=== PATIENT | female | born 1970 | race Caucasian/White ===

== ENCOUNTER 2019-10-17 08:32 | Outpatient (CLI) | payer OTHER, SELFPAY ==
--- NOTE | 2019-10-18 21:12 | SLEEP_ITS ---
Home sleep test. DATE OF STUDY: 10/17/2019 ORDERING PROVIDER: YOAN Cooper. REASON FOR THE STUDY: Insomnia. HISTORY: The patient is a 49-year-old female, 5 feet 2 inches tall, weighing 200 pounds with a body mass index of 36.5. She has complaints of very loud snoring. There is a family history, her father has sleep apnea. She constantly snores loud enough that others complain about it. She frequently awakens from sleep feeling short of breath and with heartburn and belching. She occasionally has trouble sleeping with a cold. She rarely wakes up gasping for breath at night. She rarely has breathing problems witnessed by others. She frequently sweats excessively at night. She occasionally notices her heart pounding or beating irregularly at night. She rarely falls asleep during the day. She does not fall asleep involuntarily or while driving. She does not have loss of muscle tone with strong emotion. She does not have daytime difficulties due to excessive sleepiness. She does not feel paralyzed on waking or falling asleep. She does not have vivid dreamlike scenes upon awakening or falling asleep. She is never afraid to go to sleep and does not have nightmares. She occasionally remembers her dreams and occasionally has racing thoughts. She does not have feelings of sadness or depression. She rarely feels anxious. She occasionally has muscular tension. She frequently notices parts of her body jerking, rarely kicks at night and occasionally has crawly, achy feelings in her legs. She frequently has leg pain at night. She rarely has morning jaw pain. She occasionally grinds her teeth. She frequently is bothered by pain during the day as well as at night and feels stiff in the morning with sore achy muscles and neck and spine pain. Normal bedtime is 10 p.m., falling asleep within 2-3 minutes, waking 2-3 times at night, sometimes for hours. When she awakens at night, she will go to the bathroom, drink water, reposition herself and try to relax. She wakes up in the morning at 6:30 a.m. Weekend schedule is about the same, maybe going to bed an hour later. MEDICAL COMORBIDITIES: Arthritis, seasonal allergies. MEDICATIONS: No regular medications. HABITS: Never smoked tobacco. Caffeine, drinks tea at lunch. No alcohol. DESCRIPTION OF THE STUDY: On the [place] Sleepiness Scale, her score is 11, elevated. This was conducted as an unattended type 3 portable home sleep test with 4 channel monitoring including respiratory effort channel, heart rate channel, oxygen saturation channel, and snoring channel. This was scored using [facility] guidelines. Duration was 6 hours 56 minutes. The apnea-hypopnea index is 12.1. Oxygen desaturation index is 13.4. Lowest saturation 77%. There were 22 apneas. Of the apneas, 64% or 14 were obstructive, 36% or 8 were central. She had 62 hypopneas and 492 snoring events with 104 desaturations spending 7 minutes or 2% of the study below 88% saturation. Heart rate was 62 to 106. IMPRESSION: This study shows evidence of at least mild obstructive sleep apnea syndrome G47.33 with an AHI of 12.1, desaturation to 77%. 7 minutes spent below 88% and primarily obstructive events. The patient would benefit by an APAP with setting 5-15, appropriate interface and heated humidifier. She should not drive until daytime sleepiness has resolved. Close clinical followup is recommended. PRATEEK CROSS M.D. FRONT OFFICE DEVELOPER FRONT OFFICE DEVELOPER D I MT: Thelma RYDER
== END 2019-10-17 08:33 | disposition home or self-care (01) ==
LOC: ANHCSM 08:33
PROVIDERS: PCP Family Medicine; Visit Provider Physician Assistant Medical
DX: G47.33 Obstructive sleep apnea (adult) (pediatric) (principal)
CPT/HCPCS: 95806

== ENCOUNTER 2019-10-22 07:35 | Outpatient (CLI) | payer OTHER, SELFPAY ==
--- NOTE | ~2019-10-22 | MM_ITS ---
EXAMINATION: MM screening [facility] BI w conrad HISTORY: Screening mammogram TECHNIQUE: Craniocaudal and mediolateral oblique 3-D tomosynthesis images were obtained and synthetic 2-D images were generated. CAD analysis was submitted and interpreted. COMPARISON: Comparison to multiple prior studies sequentially, with oldest reviewed study dated 12/20. BREAST PARENCHYMAL COMPOSITION: There are scattered areas of fibroglandular density. FINDINGS: There is no evidence of suspicious mass, calcification, or architectural distortion to sugg est malignancy in either breast. There has been no suspicious interval change. IMPRESSION: 1. No mammographic evidence of malignancy. 2. Recommend routine screening mammography in one year. BI-RADS Category 1: Negative Reviewed, dictated and finalized at location A.
== END 2019-10-22 07:36 | disposition home or self-care (01) ==
PROVIDERS: PCP Family Medicine; Visit Provider Obstetrics & Gynecology
DX: Z12.31 Encounter for screening mammogram for malignant neoplasm of breast (principal)
CPT/HCPCS: 77063; 77067

== ENCOUNTER 2020-01-09 15:44 | Outpatient (CLI) | payer OTHER, SELFPAY ==
[2020-01-09 16:28] LABS: Hemoglobin 12.6 g/dL (12.0-15.0)
== END 2020-01-09 15:45 | disposition home or self-care (01) ==
LOC: ANHLAB 15:46
PROVIDERS: PCP Family Medicine; Visit Provider Obstetrics & Gynecology
DX: N95.0 Postmenopausal bleeding (principal)
CPT/HCPCS: 36415; 85014; 85018; 86850; 86900; 86901

== ENCOUNTER 2020-01-10 08:21 | Day surgery (SDC) | payer OTHER, SELFPAY ==
[2020-01-10] VITALS (21 sets, daily range): BP systolic 130–175; BP diastolic 67–93; PULSE 65–91; RESP 11–18; TEMP 36.2–36.6; O2SAT 97–100
--- NOTE | 2020-01-10 06:53 | HP_ITS ---
This report was moved to the correct visit, [id number] on 01/15/2020. Original report was signed by Juan Luis Charles MD on 01/10/20652. History and Physical Update Update Date/Time: 01/10/20 06:53 History and Physical has been reviewed, including an updated exam of the patient. There are NO changes in the patient's condition. Risks, benefits, and alternatives have been discussed and questions answered. Patient agrees to proceed with procedure. Report Initialized date/time: Juan Luis Charles MD 01/10/20652 Electronically signed by: Juan Luis Charles MD 01/10/20652 [facility]
--- NOTE | 2020-01-10 06:54 | HP_ITS ---
This report was moved to the correct visit, [id number] on 01/15/2020. Original report was signed by Juan Luis Charles MD on 01/10/20 0657. H&P: HPI History of Present Illness Date/Time: 01/10/20 06:54 Chief complaint: Postmenopausal Bleeding Narrative: Rea Oglesby is a 49 year old female Admitted with heavy bleeding. She began bleeding yesterday after 2 years of no bleeding. She has been going through a pad an hour. She will undergo a hysteroscopy dilatation curettage and ablation. Risks and benefits have been reviewed in full detail Review of Systems Review of Systems: All systems reviewed & are unremarkable except as noted in HPI and below PMFSH Family History Family History Father Hypertension Mother Hypertension Grandparent Cerebrovascular accident Family history of malignant neoplasm of bone Family history of coronary artery disease Diabetes mellitus Social History Social History Smoking status: Never smoker Second hand tobacco smoke exposure: No Alcohol intake: unknown Substance use: never Living arrangements: with family Spiritual care concerns: No Meds Home Medications and Allergies Home Medications Medication Instructions Recorded Confirmed Type [id number]-[id number] 1 tablet PO DAILY 01/09/20 01/09/20 History [Adult Multi plus [place]-3] vitamin E 30 unit PO DAILY 01/09/20 01/09/20 History hydrocodone-acetaminophen 1 tablet PO Q6H PRN #20 tablet 01/10/20 Rx Allergies Allergy/AdvReac Type Severity Reaction Status Date / Time Penicillins Allergy Unknown Unknown Verified 01/09/20 16:38 1.PCN 2. ARITHRYMICIN Allergy Unknown Unknown Uncoded 01/09/20 16:38 ERYTHROMYCIN (Generic Allergy Y Uncoded 01/09/20 16:38 Allergy) MACROLIDES Allergy Unknown Uncoded 01/09/20 16:38 Exam Const: General: no acute distress Eyes: General: appearance normal, both eyes and all related structures Neck: Neck: supple and no JVD Thyroid: thyroid normal Resp: Effort & Inspection: normal respiratory effort Auscultation: clear to auscultation bilaterally Cardio: Rate: regular rate Rhythm: regular rhythm GI: Inspection: non-distended GI Palp: Yes Soft to palpation, No Tenderness to palpation present (GI) and No Guarding due to palpation present (GI) Auscultation: normal bowel sounds : General: Yes bladder normal to inspection External Female Exam: normal external appearance Speculum Exam - Vagina: normal appearance of the vagina Speculum Exam - Cervix: normal appearance of the cervix Bimanual exam- vagina & uterus: enlarged OB/external & speculum: vaginal bleeding Skin: General skin exam: no rashes or lesions noted Extrem: General: normal to inspection and no edema Psych: Mental Status: mental status grossly normal Affect: normal affect Assessment and Plan Additional Plan impression: Heavy bleeding in a patient who was previously amenorrheic Plan: Hysteroscopy, dilatation and curettage [place] ablation Report Initialized date/time: Juan Luis Charles MD 01/10/20656 Electronically signed by: Juan Luis Charles MD 01/10/20656 [facility]
--- NOTE | 2020-01-10 08:43 | ECG_ITS ---
Measurements Intervals Bo[place] D Arc Rate: 71 P: 53 NV: 142 QRS: -7 QRSD: 78 T: 45 QT: 404 QTc: 440 Interpretive Statements SINUS RHYTHM BASELINE ARTIFACT- I, II, III, AVR, AVL, AVF, V1, V4-V6 NORMAL ECG Electronically Signed On 01-10-2020 9:13:16 CDT by Carlos Bassett D.O.
[2020-01-10 09:03] LABS: Basophils Percent Auto 0.5 % (0.2-1.2); Eosinophils Absolute Auto 0.2 K/mm3 (0-0.3); Hematocrit 40.3 % (37.0-47.0); Hemoglobin 13.4 g/dL (12.0-15.0); Immature Granulocyte Absolute 0.02 K/mm3 (0.00-0.031); Immature Granulocyte Percent A 0.3 % (0-0.5); Lymphocytes Absolute Auto 1.25 K/mm3 (0.9-3.2); Lymphocytes Percent Auto 21.9 % (18.3-44.2); Mean Corpuscular HGB Conc 33.3 g/dl (32-36); Mean Corpuscular Hemoglobin 28.7 pg (26-34); Mean Corpuscular Volume 86.3 fl (80-100); Mean Platelet Volume 9.5 fl (7.4-10.4); Monocytes Absolute Auto 0.3 K/mm3 (0.1-0.6); Monocytes Percent Auto 5.8 % (2.6-8.5); Neutrophils Absolute Auto 3.9 K/mm3 (1.3-6.7); Neutrophils Percent Auto 68.5 % (45.5-73.1); Platelet Count Result 240 k/mm3 (150-375); Red Blood Count 4.67 M/mm3 (4.2-5.4); Red Cell Distribution Width 12.4 % (11.5-14.5); White Blood Count 5.7 K/mm3 (4.5-10.0)
--- NOTE | 2020-01-10 09:15 | ED.FEMALEGU ---
HPI - Female Genitourinary General Chief complaint: Vaginal Bleeding Stated complaint: vaginal bleeding Time Seen by Provider: 01/10/20 08:30 Source: patient Mode of arrival: ambulatory Limitations: no limitations History of Present Illness HPI Narrative: This patient is a 49 year old female who presents for evaluation of vaginal bleeding. Patient states she developed heavy vaginal bleeding 3 days ago. She states her bleeding was heavy with clots. She states prior to this episode she has not had a menstrual cycle in 2 years. She initially was having to change her pad once every hour. She was evaluated by her rock cutter yesterday . She states he started her on progesterone yesterday and she states her bleeding has lessened. She also reports he scheduled her for a D and C this morning. She was sent to ER because her insurance would not preauthorize the procedure. Related Data Home Medications Medication Instructions Recorded Confirmed medroxyprogesterone 10 mg PO DAILY 01/10/20 01/10/20 Allergies Allergy/AdvReac Type Severity Reaction Status Date / Time Penicillins Allergy Unknown Unknown Verified 01/10/20 11:01 ERYTHROMYCIN (Generic Allergy Y Uncoded 01/10/20 11:01 Allergy) MACROLIDES Allergy Unknown Uncoded 01/10/20 11:01 Review of Systems Review of Systems: All systems reviewed & are unremarkable except as noted in HPI and below Constitutional: Constitutional: Denies chills Cardiovascular: Cardiovascular: Denies chest pain Respiratory: Respiratory: Denies cough and Reports dyspnea Gastrointestinal: Gastrointestinal: Denies abdominal pain, Denies diarrhea, Denies nausea and Denies vomiting Genitourinary: Genitourinary: Reports abnormal vaginal bleeding [facility] Past Medical History Medical History (Updated 01/10/20 @ 18:36 by Silvia Drew MD) Hypertension Obesity AMADOR on CPAP Surgical History Surgical History (Updated 01/10/20 @ 10:34 by Juan Luis Crowder MD) History of cholecystectomy Hx of breast reduction, elective Family History Family History Father Hypertension Mother Hypertension Grandparent Cerebrovascular accident Family history of malignant neoplasm of bone Family history of coronary artery disease Diabetes mellitus Social History Social History Smoking status: Never smoker Second hand tobacco smoke exposure: No Alcohol intake: unknown Substance use: never Spiritual care concerns: No Exam Const: General: no acute distress and alert Orientation/consciousness: patient oriented x3 HENMT: Head: atraumatic Face and sinus: face symmetric Mouth: Yes Normal oral and palatal mucosa present, Yes lip normal and Yes oropharynx normal Eyes: EOM: EOMs intact bilaterally Chest: Chest palpation & inspection: normal inspection of the chest Resp: Effort & Inspection: normal respiratory effort and no retractions Auscultation: clear to auscultation bilaterally Cardio: Rate: regular rate Rhythm: regular rhythm Heart sounds: no murmurs : Speculum Exam - Cervix: Cervical os closed Other: mucus in cervix with streak of blood Psych: Mental Status: mental status grossly normal Affect: normal affect Course Course Emergency Course: PAtient presented with 3 days of vaginal bleeding. Her bleeding improved after she was placed on progesterone yesterday. She has not active bleeding today in ER. She was sent through ER to get D and C with ablation with Dr. Millicent Wetzel Consultations Date: 01/10/20 Time: 10:00 Vital Signs Vital signs: Vital Signs Temperature 97.1 F L 01/10/20 08:27 Pulse Rate 83 01/10/20 08:27 Respiratory Rate 16 01/10/20 08:27 Blood Pressure 148/89 H 01/10/20 08:27 Pulse Oximetry 100 01/10/20 08:27 Temperature 97.8 F 01/10/20 10:55 Pulse Rate 65 01/10/20 12:30 Respiratory Rate 16 01/10/20 12:30
--- NOTE | 2020-01-10 10:33 | WPDANESEPPF ---
Anes - Initial Pre Proc Eval Procedure: Operation Date: 01/10/20 10:30 Proposed Procedures p Hysteroscopy, Dilation And Curettage Marina Endometrial Ablation - Juan Luis Somers MD Date/Time: 01/10/20 10:33 Surgeon: Juan Luis Somers MD Pre Op Diagnosis: vaginal bleeding Patient Data Age: 49 Gender: F Height: 5 ft 2 in Weight: 97.5 kg Last Vital Signs Temp 36.2 C L 01/10/20 08:27 Pulse 79 01/10/20 10:01 Resp 15 01/10/20 10:01 BP 135/75 01/10/20 10:01 Pulse Ox 100 01/10/20 10:01 Allergies Allergy/AdvReac Type Severity Reaction Status Date / Time Penicillins Allergy Unknown Unknown Verified 01/10/20 08:22 1.PCN 2. ARITHRYMICIN Allergy Unknown Unknown Uncoded 01/09/20 16:38 ERYTHROMYCIN (Generic Allergy Y Uncoded 01/09/20 16:38 Allergy) MACROLIDES Allergy Unknown Uncoded 01/09/20 16:38 Home Medications Medication Instructions Recorded Confirmed Type medroxyprogesterone mg 01/10/20 History Laboratory Tests 01/10/20 08:58 WBC 5.7 K/mm3 K/mm3 (4.5-10.0) RBC 4.67 M/mm3 M/mm3 (4.2-5.4) Hgb 13.4 g/dL g/dL (12.0-15.0) Hct 40.3 % % (37.0-47.0) MCV 86.3 fl fl (80-100) MCH 28.7 pg pg (26-34) MCHC 33.3 g/dl g/dl (32-36) RDW 12.4 % % (11.5-14.5) Plt Count 240 k/mm3 k/mm3 (150-375) MPV 9.5 fl fl (7.4-10.4) Immature Gran % (Auto) 0.3 % % (0-0.5) Neut % (Auto) 68.5 % % (45.5-73.1) Lymph % (Auto) 21.9 % % (18.3-44.2) [place] % (Auto) 5.8 % % (2.6-8.5) Eos % (Auto) 3.0 % % (0-4.4) Baso % (Auto) 0.5 % % (0.2-1.2) Lymph # (Auto) 1.25 K/mm3 K/mm3 (0.9-3.2) [place] # (Auto) 0.3 K/mm3 K/mm3 (0.1-0.6) Eos # (Auto) 0.2 K/mm3 K/mm3 (0-0.3) Baso # (Auto) 0.0 K/mm3 K/mm3 (0.0-0.1) Abs Immat Gran (auto) 0.02 K/mm3 K/mm3 (0.00-0.031) Absolute Neuts (auto) 3.9 K/mm3 K/mm3 (1.3-6.7) Absolute Nucleated RBC 0.0 K/mm3 K/mm3 (0.0-0.012) Nucleated RBC % 0.0 % % (0.0-0.2) Patient hx anesthesia problems: none Family hx anesthesia problems: none [facility] Past Medical History Medical History (Updated 01/10/20 @ 10:34 by Juan Luis Crowder MD) Hypertension Obesity AMADOR on CPAP Surgical History Surgical History (Updated 01/10/20 @ 10:34 by Juan Luis Crowder MD) History of cholecystectomy Hx of breast reduction, elective Family History Family History Father Hypertension Mother Hypertension Grandparent Cerebrovascular accident Family history of malignant neoplasm of bone Family history of coronary artery disease Diabetes mellitus Social History Social History Smoking status: Never smoker Second hand tobacco smoke exposure: No Alcohol intake: unknown Substance use: never Spiritual care concerns: No Anes - Eval Final PreProcedure Day of Procedure 01/10/20 10:33 Patient weight: obese Heart: regular rate and rhythm Lungs: clear to auscultation Airway: Mallampati scale class 1 Neurological: alert and oriented Last oral intake: >/= 8 hours ASA classification: III Emergent: no Anesthetic plan: proceed Anesthesia type and monitoring: general GIVS and standard monitoring Informed Consent: The patient's anesthetic plan and its attendant risks and benefits were discussed with the patient/family/POA. Questions were solicited and answers provided to the satisfaction of the patient/family/POA.
[2020-01-10] MEDS: LACTATED RINGERS 1,000 ML 30 ML IV CONT (10:50)
--- NOTE | 2020-01-10 11:32 | PM.PROC ---
Procedure Note - Detailed Date of procedure: 01/10/20 Pre-op diagnosis: vaginal bleeding Surgeon: Juan Luis Somers MD Postop diagnosis: Vaginal bleeding Procedure: Hysteroscopy/dilatation curettage / Min nerva ablation Anesthesia: IV sedation and local EBL: 5Cc Findings: Clots and thickened endometrium Complications: None Description of procedure: Patient was prepped draped in the normal sterile fashion placed in dorsal lithotomy position. Under excellent IV sedation weighted speculum placed in the posterior fornix of vagina. Anterior lip of the cervix was grasped with a single-tooth tenaculum. 2.5cc of 1% xylocaine anesthesia placed at 2, 4, 8, 10:00 a.m. of the cervix. The uterus sounded to 8cm. Serial dilatation with fragmented dilators performed followed by passage of a 5mm visualizing hysteroscope. Normal saline was used as visualizing medium. Clots and irregular tissue was seen but no evidence of definitive abnormality. The uterus was then scraped over the entire 360? until a good grating sound was heard. The min nerve instrument was placed in the uterus and burned for 120seconds round. The instruments removed. The patient was awakened. All sponge, needle, instrument counts were correct. There were no immediate complications
== END 2020-01-10 12:40 | disposition home or self-care (01) ==
LOC: ANHED 10:01 → ANHSURGERY 10:14
PROVIDERS: Emergency Provider General Practice; PCP Family Medicine; Visit Provider Obstetrics & Gynecology
PROC: 0U5B8ZZ Destruction of Endometrium, Via Natural or Artificial Opening Endoscopic (ICD-10-PCS; CPT 58563; principal; 2020-01-10 10:30)
DX: N93.8 Other specified abnormal uterine and vaginal bleeding (principal); I10 Essential (primary) hypertension; G47.33 Obstructive sleep apnea (adult) (pediatric); E66.9 Obesity, unspecified; Z68.36 Body mass index [BMI] 36.0-36.9, adult
CPT/HCPCS: 58563; 36415; 85025; 88305; 93005; 99285; J2250; J2405; J2704; J3010; J7030; J7120

== ENCOUNTER 2020-10-23 07:17 | Outpatient (CLI) | payer OTHER, SELFPAY ==
--- NOTE | ~2020-10-23 | MM_ITS ---
EXAMINATION: MM screening [facility] BI w conrad HISTORY: Screening TECHNIQUE: Craniocaudal and mediolateral oblique 3-D tomosynthesis images were obtained and synthetic 2-D images were generated. CAD analysis was submitted and interpreted. COMPARISON: Comparison to multiple prior studies sequentially, with oldest reviewed study dated 04/18. BREAST PARENCHYMAL COMPOSITION: There are scattered areas of fibroglandular density. FINDINGS: There is no evidence of suspicious mass, calcification, or architectural distortion to sugg est malignancy in either breast. There has been no suspicious interval change. IMPRESSION: 1. No mammographic evidence of malignancy. 2. Recommend routine screening mammography in one year. BI-RADS Category 1: Negative Reviewed, dictated and finalized at location A.
== END 2020-10-23 07:18 | disposition home or self-care (01) ==
LOC: ANHIMG 07:19
PROVIDERS: PCP Family Medicine; Visit Provider Obstetrics & Gynecology
DX: Z12.31 Encounter for screening mammogram for malignant neoplasm of breast (principal)
CPT/HCPCS: 77063; 77067

== ENCOUNTER 2021-10-25 07:24 | Outpatient (CLI) | payer OTHER, SELFPAY ==
--- NOTE | ~2021-10-25 | MM_ITS ---
EXAMINATION: MM screening [facility] BI w conrad HISTORY: Screening mammogram TECHNIQUE: Craniocaudal and mediolateral oblique 3-D tomosynthesis images were obtained and synthetic 2-D images were generated. CAD analysis was submitted and interpreted. COMPARISON: 10/23/2020, 10/22/2019, 10/22/2018 bilateral screening mammogram examinations BREAST PARENCHYMAL COMPOSITION: There are scattered areas of fibroglandular density. FINDINGS: There is no evidence of suspicious mass, calcification, or architectural distortion to sugg est malignancy in either breast. There has been no suspicious interval change. IMPRESSION: 1. No mammographic evidence of malignancy. 2. Recommend routine screening mammography in one year. BI-RADS Category 1: Negative Reviewed, dictated and finalized at location A.
== END 2021-10-25 07:25 | disposition home or self-care (01) ==
LOC: ANHIMG 07:26
PROVIDERS: PCP Family Medicine; Visit Provider Obstetrics & Gynecology
DX: Z12.31 Encounter for screening mammogram for malignant neoplasm of breast (principal)
CPT/HCPCS: 77063; 77067

== ENCOUNTER 2023-05-19 07:57 | Outpatient (CLI) | payer OTHER, SELFPAY ==
--- NOTE | ~2023-05-19 | MM_ITS ---
EXAMINATION: MM screening [facility] BI w conrad HISTORY: Screening mammogram TECHNIQUE: Craniocaudal and mediolateral oblique 3-D tomosynthesis images were obtained and synthetic 2-D images were generated. CAD analysis was submitted and interpreted. COMPARISON: 10/25/2021, 10/23/2020, 10/22/2019 bilateral screening mammogram examinations BREAST PARENCHYMAL COMPOSITION: There are scattered areas of fibroglandular density. FINDINGS: There is no evidence of suspicious mass, calcification, or architectural distortion to sugg est malignancy in either breast. There has been no suspicious interval change. IMPRESSION: 1. No mammographic evidence of malignancy. 2. Recommend routine screening mammography in one year. BI-RADS Category 1: Negative Reviewed, dictated and finalized at location B. OTIONAL MARKETING ANALYST
== END 2023-05-19 07:58 | disposition home or self-care (01) ==
LOC: ANHIMG 08:00
PROVIDERS: PCP Family Medicine; Visit Provider Obstetrics & Gynecology
DX: Z12.31 Encounter for screening mammogram for malignant neoplasm of breast (principal)
CPT/HCPCS: 77063; 77067

== ENCOUNTER 2024-07-26 07:17 | Outpatient (CLI) | payer OTHER, SELFPAY ==
--- NOTE | ~2024-07-26 | MM_ITS ---
EXAMINATION: MM screening helena BI w conrad HISTORY: Screening TECHNIQUE: Craniocaudal and mediolateral oblique 3-D tomosynthesis images were obtained and synthetic 2-D images were generated. CAD analysis was submitted and interpreted. COMPARISON: Comparison to multiple prior studies sequentially, with oldest reviewed study dated 08/15. BREAST PARENCHYMAL COMPOSITION: Not dense: There are scattered areas of fibroglandular density. FINDINGS: There is no evidence of suspicious mass, calcification, or architectural distortion to sugg est malignancy in either breast. There has been no suspicious interval change. IMPRESSION: 1. No mammographic evidence of malignancy. 2. Recommend routine screening mammography in one year. BI-RADS Category 1: Negative Reviewed, dictated and finalized at location A.
--- OUTSIDE RECORDS SUMMARY | 2024-07-26 07:24 | XMS_ITS | Referral Summary ---
Author Organization [facility] Address [address] [place] [address] Care Team Providers Care Louver Mortiser Operator Name Role Phone Dakota Mendez MD Primary Care Provider + [phone] Allergies Active Allergy Reactions Criticality Noted Date Comments Penicillins Anaphylaxis High 06/20/2022 Medications hydroCHLOROthia zide (HYDRODIURIL) 12.5 mg tablet Take 12.5 mg by mouth daily Active cetirizine (ZyrTEC) 1 mg/mL syrup Take by mouth daily Active hydrocortisone 2.5 % ointment Apply topically 2 (two) times a day Apply to upper and lower eyelids sparingly 2 times a day 30 g 1 3 Active Active Problems Problem Noted Date Diagnosed Date Periocular dermatitis 06/23/2022 Assessment & Plan (09/21/2022 9:52 PM CDT): Marked improvement with topical steroid and discontinuation of previous face creams. Suspect contact dermatitis related to previous facial moisturizers. New focal areas of inflammation/dermatitis/flaking. Plan for referral to Dr. Fuller for evaluation and possible patch testing and treatment of dermatitis. She will return as needed. Assessment & Plan (07/24/2022 7:01 PM CDT): Marked improvement with topical steroid and discontinuation of previous face creams. Suspect contact dermatitis related to previous facial moisturizers. Plan to discontinue their use permanently and continue ointment daily for 1 month. She will return in 2 months. Assessment & Plan (06/23/2022 7:06 PM CDT): Bilateral periocular dermatitis, suspect this is related to contact with some allergen. Instructed patient to stop all facial moisturizers other than hypoallergenic moisturizer (Cetaphil, Vanicream, etc.) She reports Olay facial moisturizer use, which we have instructed her to discontinue. She will start hydrocortisone 2.5% ointment BID for 1 month and will return to clinic for evaluation. If not improved, we may consider further patch testing to assess for allergen. 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
--- OUTSIDE RECORDS SUMMARY | 2024-07-26 07:24 | XMS_ITS | Clinical Summary ---
Author Organization [facility] Address [address] [place] [address] Care Team Providers Care Abstractor Name Role Phone Dakota Mendez MD Primary Care Provider + [phone] Allergies Active Allergy Reactions Criticality Noted Date [...] further patch testing to assess for allergen. Family History Medical History Relation Name Comments Diabetes Father Stroke Maternal Grandmother Cancer Paternal Grandfather Macular degeneration Paternal Grandmother Amblyopia Neg Hx Blindness Neg Hx Cataracts Neg Hx Fuchs' dystrophy Neg Hx Glaucoma Neg Hx Retinal detachment Neg Hx Thyroid disease Neg Hx Relation Name Status Comments Father Maternal Grandmother Paternal Grandfather Paternal Grandmother Social History Tobacco Use Types Packs/Day Years Used Date Smoking Tobacco: Never Smokeless Tobacco: Never Tobacco Cessation:Counseling Given: Not Answered Personal Safety Answer Date Recorded Getting School Help Needed Not on file 06/16 Comments Unknown Sex and Gender Information Value Date Recorded Sex Assigned at Not on file 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 Gender Identity Not on file Sexual Orientation Not on file Obstetrics History Plan of Treatment Health Maintenance Due Date Last Done Comments Breast Cancer Screening-Mammogram 1969 Cervical Cancer Screening 1969 Colon Cancer Screening-Colonoscopy 1969 Depression Screening 1969 Hepatitis C Screening 1969 Hepatitis B Screening 08/29/1987 Regular Well Visit/Exam 18-64 08/29/1987 Zoster Vaccine (1 of 2) 08/29/2019 Covid-19 Vaccine (2 - 2023-2 5 season) 2023 06/11/2020 Influenza Vaccine (#1) 2023 DTaP/Tdap/Td Vaccine (2 - Td or Tdap) 08/08/2031 08/07/2021 Pneumococcal vaccine <65 Aged Out No longer eligible based on patient's age to complete this topic Insurance [facility]/PPO Address: [id number] [place] [address] Care Teams Abstractor Relationship Specialty Start Date End Date Dakota Mendez MD PCP - General Family Medicine 06/20/22
== END 2024-07-26 07:18 | disposition home or self-care (01) ==
LOC: ANHIMG 07:21
PROVIDERS: PCP Family Medicine; Visit Provider Obstetrics & Gynecology
DX: Z12.31 Encounter for screening mammogram for malignant neoplasm of breast (principal)
CPT/HCPCS: 77063; 77067